=== PATIENT | male | born 1990 | race Caucasian/White ===

== ENCOUNTER 2016-11-01 06:21 | Emergency (ER) | payer MEDICAID ==
[~2016-11-01] VITALS: Ht 160 cm; Wt 60.0 kg
[2016-11-01 06:51] VITALS: BP 117/69
[2016-11-01] MEDS ORDERED: LIDOCAINE HCL 1%/EPI 1:200,000 30 ML VIAL MC ONE (08:00)
[2016-11-01] MEDS ORDERED: BACITRACIN ZINC OINT UDPKT TOP ONE (08:00)
[2016-11-01] MEDS ORDERED: TETANUS, DIPHTHERIA, PERTUSSIS VAC/PF 0.5ML (>7YR OLD) IM ONE (08:00)
== END 2016-11-01 08:12 | disposition left against medical advice (07) ==
LOC: ER 06:22
DX: Z53.21 Procedure and treatment not carried out due to patient leaving prior to being seen by health care provider (principal)

== ENCOUNTER 2016-11-01 08:40 | Emergency (ER) | payer MEDICAID ==
[~2016-11-01] VITALS: Ht 160 cm; Wt 64.0 kg
[2016-11-01] MEDS ORDERED: IBUPROFEN 600MG TABLET PO ONE (09:45)
[2016-11-01] MEDS ORDERED: TETANUS, DIPHTHERIA, PERTUSSIS VAC/PF 0.5ML (>7YR OLD) IM ONE (09:45)
[2016-11-01] MEDS ORDERED: BACITRACIN ZINC OINT UDPKT TOP ONE (09:45)
[2016-11-01] MEDS ORDERED: LIDOCAINE HCL 1% 20ML VIAL (Pyxis) INJ MC ONE (09:45)
[2016-11-01 09:49] VITALS: BP 127/64
== END 2016-11-01 10:17 | disposition home or self-care (01) ==
LOC: ER 09:09
DX: S01.91XA Laceration without foreign body of unspecified part of head, initial encounter (principal); Z23 Encounter for immunization; R00.0 Tachycardia, unspecified; Y93.89 Activity, other specified; Y99.9 Unspecified external cause status; Y92.89 Other specified places as the place of occurrence of the external cause
CPT/HCPCS: 12002; 90471; 90715; 99284; X7700; Z7610; J3490

== ENCOUNTER → 2016-11-01 | Emergency (ER) | payer MEDICAID | LOC: ER 18:27 | DX: Z53.21 Procedure and treatment not carried out due to patient leaving prior to being seen by health care provider (principal) | CPT/HCPCS: J7030; Z7610 ==